=== PATIENT | female | born 1995 | race Caucasian/White ===

== ENCOUNTER 2021-08-15 12:36 | Day surgery (SDC) | payer BC ==
[2021-08-15 14:11] LABS: Fetal Membranes Rupture No Membranes Rupture (No Rupture)
[2021-08-15] MEDS ORDERED: hydrALAZINE 20 MG/ML VIAL SLOW IVP PRN (14:37)
== END 2021-08-15 14:30 | disposition home or self-care (01) ==
LOC: CSHLD/OP 12:36
PROVIDERS: ATTEND Obstetrics & Gynecology
DX: O99.891 Other specified diseases and conditions complicating pregnancy (principal); N89.8 Other specified noninflammatory disorders of vagina; Z3A.36 36 weeks gestation of pregnancy
CPT/HCPCS: 84112

== ENCOUNTER 2021-09-07 09:38 | Outpatient (CLI) | payer BC ==
[2021-09-07 23:06] LABS: SARS-CoV-2 PCR by NAA Not Detected (NotDetected)
== END 2021-09-07 09:39 | disposition home or self-care (01) ==
LOC: CSHLAB 09:38
PROVIDERS: ATTEND Obstetrics & Gynecology
DX: Z20.822 Contact with and (suspected) exposure to COVID-19 (principal)
CPT/HCPCS: U0003; U0005

== ENCOUNTER 2021-09-11 19:00 | Inpatient (IN) | payer BC ==
[~2021-09-11 19:00] MED LIST: Bupivacaine 0.25% HCL 30 ML VIAL ONE; Bupivacaine/Epinephrine 0.25% 30 ML VIAL ONE
[2021-09-11] MEDS: Misoprostol 100 MCG TAB VAG SCH (20:48)
[2021-09-11] MEDS ORDERED: Ibuprofen 800 MG TAB PO PRN (22:50)
[2021-09-11] MEDS ORDERED: Lidocaine 1% (PF) 30 ML VIAL SC PRN (22:50)
[2021-09-11] MEDS ORDERED: hydrALAZINE 20 MG/ML VIAL SLOW IVP PRN (22:50)
[2021-09-11] MEDS ORDERED: Ondansetron PF 4 MG/2 ML Vial IVP PRN (22:50)
[2021-09-11] MEDS ORDERED: Promethazine HCl 25 MG/ML VIAL IM PRN (22:50)
[2021-09-11] MEDS ORDERED: HYDROcodone/Acetaminophen 5/325 mg Tablet PO PRN ×2 (22:50)
[2021-09-11 22:54] VITALS: BMI 39.6
[2021-09-11] MEDS ORDERED: NS w/ Oxytocin 30 units 500 ML IV SCH ×2 (23:00)
[2021-09-12 00:16] LABS: Hemoglobin 13.1 g/dL (12.0-15.5); Mean Corpuscular HGB CONC 32.6 g/dL (32.0-36.0); Mean Corpuscular Hemoglobin 28.6 pg (27.0-33.0); Mean Corpuscular Volume 87.8 fl (81.6-98.3); Mean Platelet Volume 11.4 fl (7.4-10.4); Platelet Count 216 10x3/uL (150-450); RBC Distribution Width 14.3 % (11.5-14.5); Red Blood Cell (RBC) Count 4.58 10x6/uL (3.90-5.03)
[2021-09-12 00:32] LABS: Hep B Surf Ag Non-Reactive S/CO (NonReactive)
[2021-09-12 00:33] LABS: Syphilis Antibody Nonreactive (Nonreactive); Syphilis Antibody Index 0.05 S/CO (<1.00 Non-Reactive)
[2021-09-12 00:37] LABS: HBSAg Index 0.19 S/CO (0-0.99)
[2021-09-12] MEDS: Misoprostol 100 MCG TAB VAG SCH ×6 (02:58→18:38)
[2021-09-12] MEDS: Lactated Ringer's 1,000 ML IV SCH ×3 (06:54→18:39)
[2021-09-12] MEDS ORDERED: Fentanyl 2 mcg/Bup 0.1% Cadd 100 ML ONE ×2 (08:34→16:49)
[2021-09-12] MEDS ORDERED: Promethazine HCl 25 MG/ML VIAL IM PRN (09:57)
[2021-09-12] MEDS ORDERED: diphenhydrAMINE 50 MG/ML VIAL IVP PRN (09:57)
[2021-09-12] MEDS ORDERED: Naloxone HCl 0.4 mg/ml Vial IVP PRN ×2 (09:57)
[2021-09-12] MEDS ORDERED: Acetaminophen 325 MG TAB PO PRN (09:57)
[2021-09-12] MEDS ORDERED: ePHEDrine Sulfate 50 MG/10 ML VIAL SLOW IVP PRN (09:57)
[2021-09-12] MEDS ORDERED: Ondansetron PF 4 MG/2 ML Vial IVP PRN ×2 (09:57→22:08)
[2021-09-12] MEDS ORDERED: Lactated Ringer's 500 ML IV PRN (09:57)
[2021-09-12] MEDS ORDERED: Hydrocerin (Eucerin) Cream 120 gm Jar TOP PRN (09:57)
[2021-09-12] MEDS ORDERED: Fentanyl 2 mcg/Bupivacaine 0.1% Cassette 100 ML EPIDURAL SCH (10:00)
[2021-09-12] MEDS ORDERED: Communication Order-Pharmacy FS SCH (10:00)
[2021-09-12] MEDS ORDERED: Methylergonovine 0.2 MG/ML VIAL IM PRN (22:08)
[2021-09-12] MEDS ORDERED: hydrALAZINE 20 MG/ML VIAL SLOW IVP PRN (22:08)
[2021-09-12] MEDS ORDERED: Boostrix 0.5 ML (Tdap) VIAL IM ONE (22:08)
[2021-09-12] MEDS ORDERED: Milk Of Magnesia 30 ML UDCUP PO PRN (22:08)
[2021-09-12] MEDS ORDERED: Zolpidem Tartrate 5 MG TAB PO PRN (22:08)
[2021-09-12] MEDS ORDERED: Benzocaine-Menthol 82.5 ML CAN TOP PRN (22:08)
[2021-09-12] MEDS ORDERED: Bisacodyl 10 MG SUPP PR PRN (22:08)
[2021-09-12] MEDS: Ibuprofen 800 MG TAB PO SCH (23:43)
[2021-09-12] MEDS ORDERED: Ibuprofen 800 MG TAB PO SCH (23:45)
[2021-09-13 04:15] LABS: #Neutrophils 14.2 10x3/uL (1.5-8.4); %Basophils 0.2 % (0.0-2.0); %Lymphocytes 6.6 % (18.0-47.0); %Monocytes 5.9 % (0.0-10.0); %Neutrophils 86.8 % (40.0-75.0); Hemoglobin 11.7 g/dL (12.0-15.5); Mean Corpuscular HGB CONC 33.1 g/dL (32.0-36.0); Mean Corpuscular Hemoglobin 28.7 pg (27.0-33.0); Mean Platelet Volume 11.4 fl (7.4-10.4); Platelet Count 171 10x3/uL (150-450); RBC Distribution Width 14.5 % (11.5-14.5); Red Blood Cell (RBC) Count 4.07 10x6/uL (3.90-5.03); White Blood Cell (WBC) Count 16.4 10x3/uL (3.5-10.5)
[2021-09-13] MEDS: Ferrous Sulfate 325 MG TAB PO SCH ×2 (07:22→14:58)
[2021-09-13] MEDS: Docusate 100 MG CAP PO SCH ×2 (08:20→21:30)
[2021-09-13] MEDS: Ibuprofen 800 MG TAB PO SCH ×2 (14:50→21:30)
[2021-09-14] MEDS: Ibuprofen 800 MG TAB PO SCH (05:00)
[2021-09-14] MEDS: Ferrous Sulfate 325 MG TAB PO SCH (07:29)
[2021-09-14] MEDS: Misoprostol 100 MCG TAB VAG SCH (07:33)
[2021-09-14] MEDS: Lactated Ringer's 1,000 ML IV SCH (07:33)
[2021-09-14 07:59] VITALS: BP 129/69; TEMP 97.7
[2021-09-14] MEDS: Docusate 100 MG CAP PO SCH (08:04)
== END 2021-09-14 12:00 | disposition home or self-care (01) | DRG 807 ==
LOC: CSHLD 22:15 → CSHPP 09-13 00:15
PROVIDERS: ADMIT Obstetrics & Gynecology; ATTEND Obstetrics & Gynecology
PROC: 10D07Z6 Extraction of Products of Conception, Vacuum, Via Natural or Artificial Opening (ICD-10-PCS; principal; 2021-09-12)
PROC: 0HQ9XZZ Repair Perineum Skin, External Approach (ICD-10-PCS; 2021-09-12)
DX: O69.81X0 Labor and delivery complicated by cord around neck, without compression, not applicable or unspecified (principal); Z37.0 Single live birth; O70.0 First degree perineal laceration during delivery; Z3A.40 40 weeks gestation of pregnancy; Z90.89 Acquired absence of other organs; O76 Abnormality in fetal heart rate and rhythm complicating labor and delivery; O77.0 Labor and delivery complicated by meconium in amniotic fluid
CPT/HCPCS: 36415; 51702; 85025; 85027; 86780; 86850; 86900; 86901; 87340; J2590; J7120; S0020